=== PATIENT | female | born 1975 | race Caucasian/White ===

== ENCOUNTER 2021-08-10 01:26 | Day surgery (SDC) | payer BC, SELFPAY ==
[2021-07-25 13:42] VITALS: BMI 23.5
--- NOTE | 2021-08-09 15:33 | PM.HPGS ---
History of Present Illness History of Present Illness Consent: Risks, benefits, and alternatives have been discussed and questions answered. Patient agrees to proceed with procedure. Chief complaint: hx of colon polyps Narrative: Suyapa Lyman is a 46 year old female with history of polyps and also family history of colon cancer and of polyps. Review of Systems Review of Systems: All systems reviewed & are unremarkable except as noted in HPI and below PMFSH Social History Social History Years smoked: 10 Smoking status: Former smoker Tobacco type: cigarettes Smoking end date: 09/08/97 Alcohol intake: current Substance use type: does not use Living arrangements: with family Meds Home Medications and Allergies Home Medications Medication Instructions Recorded Confirmed Type norethindrone 1 mg-ethinyl 1 tablet PO DAILY #84 tablet 02/26/21 07/25/21 Rx estradiol 10 mcg (24)-iron 10 mcg(2) tablet Allergies Allergy/AdvReac Type Severity Reaction Status Date / Time No Known Allergies Allergy Verified 08/10/21 10:15 Exam Resp: Auscultation: clear to auscultation bilaterally Cardio: Rate: regular rate Rhythm: regular rhythm GI: GI Palp: Yes Soft to palpation and No Tenderness to palpation present (GI) Assessment and Plan Assessment and plan (1) Personal history of colonic polyps: Code(s): Z86.010 - Personal history of colonic polyps Status: Acute Assessment and Plan: Colonoscopy with possible biopsy or polypectomy or cautery or injection of substances.
[2021-08-10 10:16] VITALS: BP 143/60; PULSE 72; RESP 20; TEMP 36.2; O2SAT 99; BMI 23.3
[2021-08-10] MEDS: LACTATED RINGERS 1,000 ML 150 ML IV CONT (10:20)
--- NOTE | 2021-08-10 10:43 | WPDANESEPPF ---
Anes - Initial Pre Proc Eval Procedure: Operation Date: 08/10/21 11:00 Proposed Procedures p Screening Colonoscopy - Mango Hubbard MD Date/Time: 08/10/21 10:43 Surgeon: Mango Hubbard MD Pre Op Diagnosis: hx of colon polyps Patient Data Age: 46 Gender: F Height: 1.63 m Weight: 61.6 kg Last Vital Signs Temp 36.2 C L 08/10/21 10:16 Pulse 72 08/10/21 10:16 Resp 20 08/10/21 10:16 BP 143/60 H 08/10/21 10:16 Pulse Ox 99 08/10/21 10:16 Allergies Allergy/AdvReac Type Severity Reaction Status Date / Time No Known Allergies Allergy Verified 08/10/21 10:15 Home Medications Medication Instructions Recorded Confirmed Type norethindrone 1 mg-ethinyl 1 tablet PO DAILY #84 tablet 02/26/21 07/25/21 Rx estradiol 10 mcg (24)-iron 10 mcg(2) tablet Patient hx anesthesia problems: none Family hx anesthesia problems: none Results Review: All pre-operative results and documents have been reviewed as part of the pre-operative evaluation. [facility] Social History Social History Years smoked: 10 Smoking status: Former smoker Tobacco type: cigarettes Smoking end date: 09/08/97 Alcohol intake: current Substance use type: does not use Living arrangements: with family Anes - Eval Final PreProcedure Day of Procedure 08/10/21 10:43 Patient weight: normal Heart: regular rate and rhythm Lungs: clear to auscultation Airway: Mallampati scale class II Neurological: alert and oriented Last oral intake: >/= 8 hours ASA classification: I Emergent: no Anesthetic plan: proceed Anesthesia type and monitoring: general GIVS and standard monitoring Results Review: All pre-operative results and documents have been reviewed as part of the pre-operative evaluation. Informed Consent: The patient's anesthetic plan and its attendant risks and benefits were discussed with the patient/family/POA. Questions were solicited and answers provided to the satisfaction of the patient/family/POA.
[2021-08-10 11:19] VITALS: BP 83/41; PULSE 37; RESP 20; O2SAT 99
[2021-08-10 11:29] VITALS: BP 97/43; PULSE 35; RESP 20; O2SAT 100
[2021-08-10 11:39] VITALS: BP 90/51; PULSE 35; RESP 17; O2SAT 100
== END 2021-08-10 11:47 | disposition home or self-care (01) ==
PROVIDERS: PCP Family Medicine; Visit Provider Internal Medicine Gastroenterology
PROC: 0DJD8ZZ Inspection of Lower Intestinal Tract, Via Natural or Artificial Opening Endoscopic (ICD-10-PCS; CPT 45378; principal; 2021-08-10 11:00)
DX: Z12.11 Encounter for screening for malignant neoplasm of colon (principal); K64.4 Residual hemorrhoidal skin tags; D12.5 Benign neoplasm of sigmoid colon; Z87.891 Personal history of nicotine dependence
CPT/HCPCS: 45381; 45385; 88305; J2704; J7120

== ENCOUNTER 2021-08-12 22:17 | Inpatient (IN) | payer BC, SELFPAY ==
[2021-08-12 22:19] VITALS: BP 177/67; PULSE 37; RESP 18; TEMP 36.4; O2SAT 100
[2021-08-12 22:38] VITALS: BP 156/81; PULSE 40; RESP 21; O2SAT 100
--- NOTE | 2021-08-12 22:53 | ECG_ITS ---
Measurements Intervals [place] Rate: 36 P: [place]: 0 QRS: 81 QRSD: 65 T: 69 QT: 506 QTc: 394 Interpretive Statements SINUS RHYTHM WITH COMPLETE HEART BLOCK SLOW JUNCTIONAL ESCAPE RHYTHM CANNOT RULE OUT SEPTAL INFARCT, AGE INDETERMINATE ABNORMAL ECG Electronically Signed On 08-13-2021 5:36:06 SPORTS DIRECTOR by Emeterio Paulino D.O.
[2021-08-12 23:08] LABS: Basophils Percent Auto 0.5 % (0.2-1.2); Eosinophils Absolute Auto 0.5 K/mm3 (0-0.3); Eosinophils Percent Auto 5.5 % (0-4.4); Hematocrit 38.5 % (37.0-47.0); Hemoglobin 12.4 g/dL (12.0-15.0); Immature Granulocyte Absolute 0.01 K/mm3 (0.00-0.031); Immature Granulocyte Percent A 0.1 % (0-0.5); Lymphocytes Absolute Auto 3.55 K/mm3 (0.9-3.2); Lymphocytes Percent Auto 43.5 % (18.3-44.2); Mean Corpuscular HGB Conc 32.2 g/dl (32-36); Mean Corpuscular Hemoglobin 29.9 pg (26-34); Mean Corpuscular Volume 92.8 fl (80-100); Mean Platelet Volume 10.6 fl (7.4-10.4); Monocytes Absolute Auto 0.8 K/mm3 (0.1-0.6); Monocytes Percent Auto 9.4 % (2.6-8.5); Neutrophils Absolute Auto 3.4 K/mm3 (1.3-6.7); Platelet Count Result 212 k/mm3 (150-375); Red Blood Count 4.15 M/mm3 (4.2-5.4); Red Cell Distribution Width 13.5 % (11.5-14.5); White Blood Count 8.2 K/mm3 (4.5-10.0)
--- NOTE | 2021-08-12 23:12 | ED.GENADULT ---
HPI - General Adult General Chief complaint: GI Bleed Stated complaint: bright red rectal bleed s/p colonoscopy Time Seen by Provider: 08/12/21 23:08 Source: patient History of Present Illness HPI narrative: Patient is a 46 y/o female complaining of rectal bleeding starting tonight. She states that she had at least 6 episode of bleeding. The bleeding is mostly bright red blood. She has no abdominal pain or rectal pain. She states that she had colonoscopy and polypectomy 2 days ago. She also feels weak. Related Data Home Medications Medication Instructions Recorded Confirmed norethindrone-e.estradiol-iron [Lo 1 tablet PO DAILY 08/13/21 08/13/21 Loestrin Fe] Allergies Allergy/AdvReac Type Severity Reaction Status Date / Time No Known Allergies Allergy Verified 08/13/21 08:58 Review of Systems Constitutional: Constitutional: Denies chills, Denies fever(s), Denies headache(s) and Denies weakness Eyes: Eyes: Denies blurry vision ENT: Denies headache(s) and Denies neck pain Cardiovascular: Cardiovascular: Denies chest pain and Denies dyspnea Respiratory: Respiratory: Denies cough and Denies dyspnea Gastrointestinal: Gastrointestinal: Denies abdominal pain, Reports hematochezia, Denies diarrhea, Denies nausea and Denies vomiting Genitourinary: Genitourinary: Denies hematuria and Denies dysuria Musculoskeletal: Musculoskeletal: Denies back pain and Denies neck pain Neurologic: Denies headache(s) and Denies weakness PMFSH Past Medical History Medical History (Updated 08/13/21 @ 11:21 by Anitha Ellison MD) Colon polyps HPV (human papilloma virus) infection Surgical History Surgical History (Updated 08/13/21 @ 06:00 by Sabrina Carlos DO) History of breast augmentation (~2018) History of colonoscopy with polypectomy 09/2015, 08/10/2021 Hx of basal cell carcinoma (06/2017) Resected from right scapula Family History Family History Grandparent Carcinoma of colon Mother Colon polyp Social History Social History (Updated 08/13/21 @ 06:02 by Sabrina Carlos DO) Social History: She has been since 2006. She and her to teenage boys. She drinks a glass a wine nightly and will drink more when going out in social situations. Smoking packs per day: 0.5 Smoking cigarettes per day: 10.0 Years smoked: 10 Smoking pack-years: 5.00 Smoking status: Current some day smoker Tobacco type: cigarettes Smoking end date: 08/13/04 Alcohol intake: current Drinks per week: 12 Substance use: never Substance use type: does not use Spiritual care concerns: No Exam Const: General: no acute distress and well developed Orientation/consciousness: oriented to person, oriented to place, oriented to time and patient oriented x3 HENMT: Head: normocephalic Ears: external ears normal General nose exam: Normal external nose present Eyes: General: appearance normal, both eyes and all related structures Conjunctivae: conjunctivae normal Neck: Neck: normal visual inspection and full ROM Chest: Chest palpation & inspection: normal inspection of the chest and no tenderness Resp: Effort & Inspection: normal respiratory effort Auscultation: clear to auscultation bilaterally Cardio: Rate: bradycardic Rhythm: regular rhythm GI: GI Palp: No abdominal tenderness and Yes Soft to palpation Skin: General skin exam: normal color and turgor normal Neuro: General: oriented to person, oriented to place, oriented to time and patient oriented x3 Cognition (Neuro): normal cognition Extrem: General: normal to inspection, full ROM and no pedal edema Psych: Appearance: grossly normal Mental Status: mental status grossly normal Affect: normal affect Course Consultations Consultation #1: Discussed with Dr. Haro, who agrees to consult. Date: 08/12/21 Time: 23:22 Consultation #2: Discussed with Dr. Oneal, who agrees to
[2021-08-12 23:18] LABS: INR 0.9; Prothrombin Time 12.3 Seconds (11.1-14.7)
[2021-08-12 23:19] LABS: Alanine Aminotransferase 64 U/L (4-35); Albumin Level 4.4 g/dL (3.5-5.1); Alkaline Phosphatase 72 U/L (38-126); Anion Gap 8 mmol/L (8-16); Aspartate Amino Transferase 59 U/L (14-36); Bilirubin,Total 0.4 mg/dL (0.2-1.3); Blood Urea Nitrogen 22 mg/dL (7-17); Calcium 9.4 mg/dL (8.4-10.2); Carbon Dioxide 23 mmol/L (22-30); Chloride 103 mmol/L (98-107); Estimated Glomerular Filt Rate 59; Glucose 94 mg/dL (65-110); Partial Thromboplastin Time 25.6 SECONDS (22.3-36.8); Potassium 3.8 mmol/L (3.4-5.0); Sodium 134 mmol/L (137-145)
--- NOTE | 2021-08-12 23:39 | ECG_ITS ---
Measurements Intervals [place] Rate: 38 P: [place]: 0 QRS: 78 QRSD: 80 T: 71 QT: 516 QTc: 413 Interpretive Statements SINUS RHYTHM WITH COMPLETE HEART BLOCK SLOW JUNCTIONAL ESCAPE RHYTHM CANNOT RULE OUT SEPTAL INFARCT, AGE INDETERMINATE BASELINE ARTIFACT- II, III, AVF, V2, V4-V6 ABNORMAL ECG Electronically Signed On 08-13-2021 5:38:02 PAINTING INSTRUCTOR by Emeterio Paulino D.O.
[2021-08-12 23:57] VITALS: BP 131/65; PULSE 40; RESP 13; O2SAT 100
[2021-08-13] VITALS (46 sets, daily range): BP systolic 104–142; BP diastolic 41–78; PULSE 36–91; RESP 9–22; TEMP 36–36.5; O2SAT 98–100; BMI 23.1; BMI 24.3
--- NOTE | 2021-08-13 | ECHOL_ITS ---
Patient Info Name: Suyapa Lyman Age: 46 years : 1975 Gender: Female Ht: 65 in Wt: 134 lbs BSA: 1.67 m2 HR: 78 bpm BP: 108 / 66 mmHg Heart Rhythm: Sinus Rhythm Technical Quality: Good Exam Date: 08/13/2021 12:43 PM Exam Location: [facility] Pulmonary Exam Room: [place] [address] Patient Status: Inpatient Admit Date: 08/13/2021 Staff Ordering Physician: Rashad Forbes MD Sales Contracts Analyst: Arleth Valencia RDCS Attending Provider: Sabrina Carlos DO Referring Physician: Leidy OVALLE; Exam Type: CA echo limited Study Info Indications - CHB Limited two-dimensional transthoracic echocardiogram is performed. Summary 1. Patient in sinus rhythm with 2-1 conduction during the exam. 2. Otherwise unremarkable echocardiogram. Left Ventricle Left ventricular chamber dimension is normal. Left ventricular systolic function is normal, estimated at 65-70%. The left ventricular diastolic function is normal. Right Ventricle Right ventricular chamber dimension is normal. Left Atria Left atrial chamber dimension is normal. Right Atria Right atrial chamber dimension is normal. Aortic Valve The aortic valve is normal. Pulmonic Valve The pulmonic valve is normal. Mitral Valve The mitral valve has normal leaflets. Tricuspid Valve The tricuspid valve leaflets are normal. Pericardium/Pleural The pericardium appears normal. Aorta The aortic root size at the sinus of Valsalva is normal. Left Ventricular Outflow Tract Name Value Normal LVOT 2D LVOT Diameter 2.0 cm Aortic Valve Name Value Normal AV Regurgitation 2D LVOT Area 3.1 cm2 Ventricles Name Value Normal LV Dimensions 2D/MM IVS Diastolic Thickness (2D) 0.6 cm 0.6-1.0 LVID Diastole (2D) 4.9 cm 3.8-5.2 LVIW Diastolic Thickness (2D) 0.9 cm 0.6-0.9 LVID Systole (2D) 2.7 cm 2.2-3.5 LVOT Diameter 2.0 cm LV Mass (2D Cubed) 123.89 g 67.00-162.00 LV Mass Index (2D Cubed) 74 g/m2 43-95 Relative Wall Thickness (2D) 0.39 LV Fractional Shortening/Ejection Fraction 2D/MM LV Fractional Shortening (2D) 44 % 27-45 LV EF (2D Teicholz) 75 % 54-74 LV Diastolic Volume (4C MOD) 99 ml LV EF (4C MOD) 61 % LV Diastolic Volume (2C MOD) 101 ml LV EF (2C MOD) 72 % LV Diastolic Volume (BP MOD)
[2021-08-13] MEDS: SODIUM CHLORIDE 0.9% IV 1,000 ML 999 ML IV CONT (00:10)
--- NOTE | 2021-08-13 00:25 | PM.IMHP ---
H&P: HPI History of Present Illness Date/Time: 08/13/21 00:25 Chief Complaint: Rectal bleeding Narrative: 46-year-old female with a past medical history of chronic bradycardia and colon polyps who presented to the ER via private vehicle from home with rectal bleeding. The patient and the colonoscopy with polypectomy performed 08/10/[address] Hubbard. The polyp was pedunculated 40 mm in size and was located 27 cm from the anal verge. Polyp appeared to be adenomatous in nature according to notes. The patient is not on any blood thinners. The patient reports that she drank approximately 4 glasses a wine yesterday and took some ibuprofen because she was worried about having a hangover the next day. In around 7:00 p.m. she began having multiple bloody bowel movements. Initially it was just blood in the later bowel movements had a small amount of stool. She has had at least 10 bowel movements since 7:00 p.m.. She denies any nausea or vomiting. She reports some abdominal cramping just before bowel movements but denies any true pain. She reports her lower abdomen did feel a little bit bloated. She has never had prior GI bleeding. On arrival to the ER was noted the patient was bradycardic. She reports that she is healthy in usually works out regularly. She does not know her resting heart rate. She did state that when she had her colonoscopy a couple of days ago that the nurses were commenting on her low heart rate. On review of records the patient's heart rate in GI lab was between 35 and 37. But she has noticed over the last 6 months that she has been more fatigued than usual and has been developing dyspnea when she climbs a flight of stairs. She has not been going to the gym as much due to her symptoms. She has noticed some mild weight gain but attributes this to COVID and eating more. She denies any chest pain or palpitations. The only other EKG available for for my review was from April 2014 and demonstrated normal sinus rhythm with a rate of 62. Review of Systems Review of Systems: 12 systems were reviewed with pertinent positives and negatives per HPI. Except as documented in the HPI, all other systems were reviewed and are negative. [facility] Past Medical History Medical History (Updated 08/13/21 @ 00:35 by Sabrina Carlos DO) Colon polyps HPV (human papilloma virus) infection Surgical History Surgical History (Updated 08/13/21 @ 06:00 by Sabrina Carlos DO) History of breast augmentation (~2019) History of colonoscopy with polypectomy 09/2015, 08/10/2021 Hx of basal cell carcinoma (06/2017) Resected from right scapula Family History Family History Grandparent Carcinoma of colon Mother Colon polyp Social History Social History (Updated 08/13/21 @ 06:02 by Sabrina Carlos DO) Social History: She has been since 2006. She and her to teenage boys. She drinks a glass a wine nightly and will drink more when going out in social situations. Smoking packs per day: 0.5 Smoking cigarettes per day: 10.0 Years smoked: 10 Smoking pack-years: 5.00 Smoking status: Former smoker Tobacco type: cigarettes Smoking end date: 09/08/97 Alcohol intake: current Substance use type: does not use Meds Home Medications and Allergies Home Medications Medication Instructions Recorded Confirmed Type norethindrone 1 mg-ethinyl 1 tablet PO DAILY #84 tablet 02/26/21 07/25/21 Rx estradiol 10 mcg (24)-iron 10 mcg(2) tablet Allergies Allergy/AdvReac Type Severity Reaction Status Date / Time No Known Allergies Allergy Verified 08/12/21 22:39 Vital Signs Vital Signs - 24 hr 08/12/21 22:19 08/12/21 22:38 08/12/21 23:57 Temperature 97.6 F Pulse Rate 37 L 40 L 40 L Respiratory Rate 18 21 H 13 Blood Pressure 177/67 H 156/81 H 131/65 Pulse Oximetry 100 100 100 Exam Narrative: PHYSICAL EXAM: WEIGHT
[2021-08-13] MEDS: SODIUM CHLORIDE 0.9% IV 1,000 ML 125 ML IV CONT ×3 (04:01→18:26)
--- NOTE | 2021-08-13 06:31 | PC.NURSE ---
calls back in regards to patient's H&H result. She stated she will come down to re-evaluate the patient.
--- NOTE | 2021-08-13 07:27 | WPDGICN ---
Assessment and Plan Assessment and plan (1) GI (gastrointestinal hemorrhage): Qualifiers: GI bleed type/associated pathology: unspecified gastrointestinal hemorrhage type Qualified Code(s): K92.2 - Gastrointestinal hemorrhage, unspecified Code(s): K92.2 - Gastrointestinal hemorrhage, unspecified Status: Acute Assessment and Plan: Colonoscopy with possible biopsy or polypectomy or cautery or injection of substances. her hemoglobin will be followed every 6 hours. If hemoglobin drops below 8 she will need transfuse (2) Mobitz type 2 second degree heart block: Code(s): I44.1 - Atrioventricular block, second degree Status: Acute Assessment and Plan: cardiology is following and will determine need for pacemaker and other studies GI Consult Note Consult date/time: 08/13/21 07:27 HPI: Suyapa Lyman is a 46 year old female Who had a colonoscopy with removal of a large polyp on Friday. She states that she was active, playing tag football with her children yesterday but otherwise felt well until the middle the night when she began passing blood in her stools. She has had 6 bowel movements of bright red blood so far. She had been feeling weak and fatigued but this has been present for a while recently. In fact she was noted to have a low heart rate on Friday. An EKG that was done in the emergency room shows apparently that she has heart block. She has been seen by Cardiology and they have diagnosed her with Mobitz type 2 heart block. Her repeat hemoglobin was 8.3. She denies any abdominal pain Review of Systems Review of Systems: All systems reviewed & are unremarkable except as noted in HPI and below PMFSH Past Medical History Medical History Colon polyps HPV (human papilloma virus) infection Surgical History Surgical History History of breast augmentation (~2018) History of colonoscopy with polypectomy 09/2015, 08/10/2021 Hx of basal cell carcinoma (06/2017) Resected from right scapula Family History Family History Grandparent Carcinoma of colon Mother Colon polyp Social History Social History Social History: She has been since 2006. She and her to teenage boys. She drinks a glass a wine nightly and will drink more when going out in social situations. Smoking packs per day: 0.5 Smoking cigarettes per day: 10.0 Years smoked: 10 Smoking pack-years: 5.00 Smoking status: Current some day smoker Tobacco type: cigarettes Smoking end date: 08/13/04 Alcohol intake: current Drinks per week: 12 Substance use: never Substance use type: does not use Spiritual care concerns: No Meds Home Medications and Allergies Home Medications Medication Instructions Recorded Confirmed Type norethindrone-e.estradiol-iron [Lo 1 tablet PO DAILY 08/13/21 08/13/21 History Loestrin Fe] Allergies Allergy/AdvReac Type Severity Reaction Status Date / Time No Known Allergies Allergy Verified 08/13/21 08:58 Vital Signs Vital Signs - 24 hr 08/12/21 22:19 08/12/21 22:38 08/12/21 23:57 Temperature 36.4 C Pulse Rate 37 L 40 L 40 L Respiratory Rate 18 21 H 13 Blood Pressure 177/67 H 156/81 H 131/65 Pulse Oximetry 100 100 100 08/13/21 00:42 08/13/21 03:39 08/13/21 07:03 Temperature Pulse Rate 40 L 39 L 38 L Respiratory Rate 15 14 15 Blood Pressure 129/69 127/70 104/68 Pulse Oximetry 99 100 100 Exam Const: General: alert Orientation/consciousness: patient oriented x3 Resp: Auscultation: clear to auscultation bilaterally Cardio: Rate: bradycardic Rhythm: regular rhythm GI: GI Palp: Yes Soft to palpation and No Tenderness to palpation present (GI) Neuro: General: patient oriented x3
--- NOTE | 2021-08-13 07:30 | PC.NURSE ---
Ambulated pt to the restroom, pt states there was no blood at this time
[2021-08-13 07:57] LABS: Free T4 Free Thyroxine Reflex 0.88 ng/dL (0.78-2.19)
--- NOTE | 2021-08-13 08:30 | PC.NURSE ---
Spoke with Dr. Mccormack regarding hemoglobin levels and plan, pt hemoglobin has been redrawn to make sure level is correct, awaiting results,then will call blood bank if necessary
[2021-08-13 08:44] LABS: Basophils Percent Auto 0.4 % (0.2-1.2); Eosinophils Absolute Auto 0.2 K/mm3 (0-0.3); Eosinophils Percent Auto 5.2 % (0-4.4); Hematocrit 25.5 % (37.0-47.0); Hemoglobin 8.3 g/dL (12.0-15.0); Immature Granulocyte Absolute 0.02 K/mm3 (0.00-0.031); Immature Granulocyte Percent A 0.4 % (0-0.5); Lymphocytes Absolute Auto 2.02 K/mm3 (0.9-3.2); Lymphocytes Percent Auto 44.1 % (18.3-44.2); Mean Corpuscular HGB Conc 32.5 g/dl (32-36); Mean Corpuscular Hemoglobin 30.4 pg (26-34); Mean Corpuscular Volume 93.4 fl (80-100); Mean Platelet Volume 10.8 fl (7.4-10.4); Monocytes Absolute Auto 0.4 K/mm3 (0.1-0.6); Monocytes Percent Auto 7.9 % (2.6-8.5); Neutrophils Absolute Auto 1.9 K/mm3 (1.3-6.7); Platelet Count Result 142 k/mm3 (150-375); Red Blood Count 2.73 M/mm3 (4.2-5.4); Red Cell Distribution Width 13.6 % (11.5-14.5); White Blood Count 4.6 K/mm3 (4.5-10.0)
--- NOTE | 2021-08-13 08:44 | PM.CNCAR ---
Assessment and Plan Additional Plan 46-year-old lady with acquired complete heart block. By her history it sounds like this is been the case for something like 6 months or so. Her pulse is in the high 30s and I feel fairly confident she was in this rhythm when she was here for colonoscopy last week because the vital signs reflected the same type of heart rate. She presents to the hospital with nothing related to this she is having lower GI bleeding presumably from the site of her polypectomy last week. Gastroenterology has seen her and I believe is planning on bringing her back to the GI lab to further assess and treat this. The patient tells me that her hemoglobin has come down to about 8.5 on repeat sample. Looking at the chart at the moment I dictate this it looks like that is actually pending but the patient is telling me that her hemoglobin was down and some red cell transfusion is being ordered for her at this time. At this time I would simply order an echocardiogram to look at the structural basis of this. She is taking no medications that would affect her AV node physiology. This is a class 1 indication for a permanent pacemaker implantation although given the principal reason she is here that and the lack of any syncopal event there is no urgency to proceeding with this. I am confident she was in this rhythm when she was here last week for her colonoscopy given review of the anesthesia record of the vital signs. I will follow her with you while she is in the hospital but I would anticipate arranging for a pacemaker implantation in the future when the current issue has been resolved. Rashad Forbes MD [facility] History of Present Illness History of Present Illness Consult date/time: Date of service: 08/13/21 08:44 Reason For Visit: GI Bleed, Heart Block Narrative: This is a 46-year-old woman who I am seeing in the emergency room this morning because of bradycardia/complete heart block that was noticed on an ECG when she presented here yesterday evening. The patient came here not because of this peak because of rectal bleeding. According to the chart she had a colonoscopy with sigmoid polypectomy done on 08/10/2021. The procedure apparently was uneventful and she went home. She was doing well on Friday but on Friday she started to notice some rectal bleeding. She was having a very active day with her family but was obviously concerned about this. These episodes occurred during the course of the day and finally yesterday afternoon she came to the hospital. She was noted to be bradycardic and an ECG demonstrates sinus rhythm with third-degree AV block and a narrow QRS escape rhythm with a heart rate in the high 30s. Interestingly going through her chart she did have a heart rate of about 37 when she was having her colonoscopy done last week although I do not believe an ECG was done and I do not see any rhythm strip recordings on the chart to look at. The last time she was in her PCP office she had a pulse in the mid 70s. The only old ECG in the chart goes back to 2013 at which time she had normal AV conduction. She denies any history of heart problems prior to this she has no history of syncope chest pain orthopnea PND edema or lightheadedness. She has noticed for about 6 months with activities and she does try to exercise for fitness she has to stop to recover from generalized fatigue and exertional shortness of breath. She did not bring this to her physician's attention as she we did not find to be of any major concern. She is otherwise a healthy lady without any hypertension or diabetes or dyslipidemia. She simply takes estrogen replacement tablets. The patient is a [employer] Review of Systems Constitutional: Constitutional: Reports lethargy Eyes: Eyes: Reports no additional eye complaints ENT: Reports system reviewed and no additional complaints, except as documented Cardiovascular: Cardiovascular: Reports as per HPI Respirat
[2021-08-13 08:57] LABS: Alanine Aminotransferase 46 U/L (4-35); Albumin Level 2.9 g/dL (3.5-5.1); Alkaline Phosphatase 41 U/L (38-126); Anion Gap 3 mmol/L (8-16); Aspartate Amino Transferase 42 U/L (14-36); Bilirubin,Total 0.6 mg/dL (0.2-1.3); Blood Urea Nitrogen 17 mg/dL (7-17); Calcium 7.7 mg/dL (8.4-10.2); Carbon Dioxide 23 mmol/L (22-30); Chloride 105 mmol/L (98-107); Estimated CRCL calculation 67 ml/min; Estimated Glomerular Filt Rate > 60; Glucose 107 mg/dL (65-110); Potassium 3.9 mmol/L (3.4-5.0); Sodium 131 mmol/L (137-145)
[2021-08-13 09:01] LABS: Total Triiodothyronine (T3) 1.02 NG/ML (0.97-1.69)
--- NOTE | 2021-08-13 09:30 | PM.IMPN ---
Progress Note: A&P Assessment and Plan (1) Lower GI bleed: Code(s): K92.2 - Gastrointestinal hemorrhage, unspecified Status: Acute Assessment and Plan: Colonoscopy with polyp removal last week with Dr. Hubbard Reports multiple episodes of bleeding with BMs Dr. Hbubard consulted thank you Colonoscopy scheduled for today H/H is trending down Current 8.3/5.5 Hold off transfusion for now Transfuse if she gets below 7 She might be ok with out transfusion (2) Acute blood loss anemia: Code(s): D62 - Acute posthemorrhagic anemia Status: Acute Assessment and Plan: active bleeding noted related to GI bleed colonoscopy scheduled for today trend labs current H&H 8.3/25.5 transfuse if lower than 7 Get anemia labs (3) Third degree heart block: Code(s): I44.2 - Atrioventricular block, complete Status: Acute Assessment and Plan: Abnormal rhythm noted on the monitor EKG shows SR with complete heart block in the 30s Recently here for procedure, HR noted to be in the 30s Cards consulted Will need a pacemaker at some point Tele monitor Keep activity minimal Echo ordered and pending (4) Anxiety: Code(s): F41.9 - Anxiety disorder, unspecified Status: Acute Assessment and Plan: Very anxious Probably from heart problem and bleeding Will continue to trend Add something if indicated Time Spent With Patient Time with patient: Greater than 35 minutes Subjective Date/time seen: 08/13/2130 Interval history: Date/Time: 08/13/21 00:25 Narrative: 46-year-old female with a past medical history of chronic bradycardia and colon polyps who presented to the ER via private vehicle from home with rectal bleeding. The patient and the colonoscopy with polypectomy performed 08/10/[address] Hubbard. The polyp was pedunculated 40 mm in size and was located 27 cm from the anal verge. Polyp appeared to be adenomatous in nature according to notes. The patient is not on any blood thinners. The patient reports that she drank approximately 4 glasses a wine yesterday and took some ibuprofen because she was worried about having a hangover the next day. In around 7:00 p.m. she began having multiple bloody bowel movements. Initially it was just blood in the later bowel movements had a small amount of stool. She has had at least 10 bowel movements since 7:00 p.m.. She denies any nausea or vomiting. She reports some abdominal cramping just before bowel movements but denies any true pain. She reports her lower abdomen did feel a little bit bloated. She has never had prior GI bleeding. On arrival to the ER was noted the patient was bradycardic. She reports that she is healthy in usually works out regularly. She does not know her resting heart rate. She did state that when she had her colonoscopy a couple of days ago that the nurses were commenting on her low heart rate. On review of records the patient's heart rate in GI lab was between 35 and 37. But she has noticed over the last 6 months that she has been more fatigued than usual and has been developing dyspnea when she climbs a flight of stairs. She has not been going to the gym as much due to her symptoms. She has noticed some mild weight gain but attributes this to COVID and eating more. She denies any chest pain or palpitations. The only other EKG available for for my review was from April 2014 and demonstrated normal sinus rhythm with a rate of 62. Date/Time 08/13/21 0930 Patient stated that she is just tired however she has not had any sleep throughout the night. Her last BM was at 6am which she stated that she noticed a lot of blood at that time. She reports having about 6 episodes bright red bloody stool since she has been here. She did state that she is having a BM about once an hour, however, nothing since 0600 am. She denies chest pain, shortness of phylicia
--- NOTE | 2021-08-13 10:03 | PC.NURSE ---
[facility] and he states that he does not want to give blood transfusion at this time current hemoglobin is 8.3
--- NOTE | 2021-08-13 10:44 | SUR.PREOP ---
Dr Blanco states we do not need a urine on patient since she was negative on Friday.
--- NOTE | 2021-08-13 10:48 | PC.NURSE ---
spoke with GI, states they are a head of schedule and to give pt fleet enema for colonoscopy, have her recover then send pt back to ER
--- NOTE | 2021-08-13 11:22 | PC.NURSE ---
Spoke with Lesli with GI, fleet enema complete, she states one fleet enema is fine, contact them if she has another bm. will come get pt around 12-1300
[2021-08-13 11:51] LABS: Hematocrit 26.3 % (37.0-47.0); Hemoglobin 8.5 g/dL (12.0-15.0)
--- NOTE | 2021-08-13 12:31 | PC.NURSE ---
2nd fleet enema complete Lesli with GI aware
--- NOTE | 2021-08-13 13:00 | PC.NURSE ---
pt went to endoscopy
[2021-08-13] MEDS: LACTATED RINGERS 1,000 ML 150 ML IV CONT (13:09)
--- NOTE | 2021-08-13 13:32 | WPDANESEPPF ---
Anes - Initial Pre Proc Eval Procedure: Operation Date: 08/13/21 14:30 Proposed Procedures p Colonoscopy - Mango Hubbard MD Date/Time: 08/13/21 13:32 Surgeon: Sabrina Carlos DO Pre Op Diagnosis: GI Bleed, Heart Block Patient Data Age: 46 Gender: F Height: 1.64 m Weight: 62 kg Last Vital Signs Temp 97.2 F L 08/13/21 13:12 Pulse 40 L 08/13/21 13:12 Resp 16 08/13/21 13:12 BP 129/60 08/13/21 13:12 Pulse Ox 100 08/13/21 13:12 Allergies Allergy/AdvReac Type Severity Reaction Status Date / Time No Known Allergies Allergy Verified 08/13/21 13:08 Home Medications Medication Instructions Recorded Confirmed Type norethindrone-e.estradiol-iron [Lo 1 tablet PO DAILY 08/13/21 08/13/21 History Loestrin Fe] Laboratory Tests 08/12/21 08/12/21 08/12/21 23:02 23:02 23:02 WBC 8.2 K/mm3 K/mm3 (4.5-10.0) RBC 4.15 M/mm3 L M/mm3 (4.2-5.4) Hgb 12.4 g/dL g/dL (12.0-15.0) Hct 38.5 % % (37.0-47.0) MCV 92.8 fl fl (80-100) MCH 29.9 pg pg (26-34) MCHC 32.2 g/dl g/dl (32-36) RDW 13.5 % % (11.5-14.5) Plt Count 212 k/mm3 k/mm3 (150-375) MPV 10.6 fl H fl (7.4-10.4) Immature Gran % (Auto) 0.1 % % (0-0.5) Neut % (Auto) 41.0 % L % (45.5-73.1) Lymph % (Auto) 43.5 % % (18.3-44.2) Hall % (Auto) 9.4 % H % (2.6-8.5) Eos % (Auto) 5.5 % H % (0-4.4) Baso % (Auto) 0.5 % % (0.2-1.2) Lymph # (Auto) 3.55 K/mm3 H K/mm3 (0.9-3.2) Hall # (Auto) 0.8 K/mm3 H K/mm3 (0.1-0.6) Eos # (Auto) 0.5 K/mm3 H K/mm3 (0-0.3) Baso # (Auto) 0.0 K/mm3 K/mm3 (0.0-0.1) Abs Immat Gran (auto) 0.01 K/mm3 K/mm3 (0.00-0.031) Absolute Neuts (auto) 3.4 K/mm3 K/mm3 (1.3-6.7) Absolute Nucleated RBC 0.0 K/mm3 K/mm3 (0.0-0.012) Nucleated RBC % 0.0 % % (0.0-0.2) PT 12.3 Seconds Seconds (11.1-14.7) INR 0.9 APTT 25.6 SECONDS SECONDS (22.3-36.8) Sodium 134 mmol/L L mmol/L (137-145) Potassium 3.8 mmol/L mmol/L (3.4-5.0) Chloride 103 mmol/L mmol/L (98-107) Carbon Dioxide 23 mmol/L mmol/L (22-30) Anion Gap 8 mmol/L mmol/L (8-16) BUN 22 mg/dL H mg/dL (7-17) Creatinine 1.00 mg/dL mg/dL (0.7-1.0) Estim Creat Clear Calc Not Reportable Estimated GFR 59 (59 - ) Glucose 94 mg/dL mg/dL (65-110) Calcium 9.4 mg/dL mg/dL (8.4-10.2) Total Bilirubin 0.4 mg/dL mg/dL (0.2-1.3) AST 59 U/L H U/L (14-36) ALT 64 U/L H U/L (4-35) Alkaline Phosphatase 72 U/L U/L (38-126) Total Protein 7.0 g/dL g/dL (6.3-8.2) Albumin 4.4 g/dL g/dL (3.5-5.1) TSH TSH (Reflex) Free T4 Total T3 Blood Type Antibody Screen Crossmatch 12/01/2608/12/21 08/13/21 23:02 23:03 06:04 WBC RBC Hgb Hct MCV MCH MCHC RDW Plt Count MPV Immature Gran % (Auto) Neut % (Auto) Lymph % (Auto) Hall % (Auto) Eos % (Auto) Baso % (Auto) Lymph # (Auto) Hall # (Auto) Eos # (Auto) Baso # (Auto) Abs Immat Gran (auto) Absolute Neuts (auto) Absolute Nucleated RBC Nucleated RBC % PT INR APTT Sodium Potassium Chloride Carbon Dioxide Anion Gap BUN Creatinine Estim Creat Clear Calc Estimated
[2021-08-13] MEDS: EPINEPHrine INJ 1 MG/10 ML SYRINGE 0.4 MG XX (14:05)
--- NOTE | 2021-08-13 14:19 | SUR.OPER ---
Epinephrin 0.4 mg injected into sigmoid polypectomy site per Dr. Hubbard.
--- NOTE | 2021-08-13 15:11 | PC.NURSE ---
Pt returned from Endoscopy
[2021-08-13 16:23] LABS: Hematocrit 26.7 % (37.0-47.0); Hemoglobin 8.6 g/dL (12.0-15.0)
--- NOTE | 2021-08-13 18:18 | ADMGEN ---
This patient, Suyapa Lyman, was admitted to Medical Room 348-01. Patient/family oriented to hospital policies and general routines including ID bracelet, bed and alarms, visiting hours, pain management, procedures, bathroom and other care routines, personal items, smoking policy, room service/diet, and visiting hours. Information on how to activate the Rapid Response Team has been discussed. Patient/Family are encouraged to report perceived risks to care and to ask questions if they do not understand what they are told or what they should do.
[2021-08-13 19:36] LABS: Hematocrit 24.2 % (37.0-47.0)
[2021-08-14] VITALS (12 sets, daily range): BP systolic 102–135; BP diastolic 43–53; PULSE 40–46; RESP 16–21; TEMP 36.1–37.1; O2SAT 99–100
[2021-08-14 00:56] LABS: Hematocrit 21.4 % (37.0-47.0)
[2021-08-14 00:58] LABS: Hemoglobin 6.9 g/dL (12.0-15.0)
[2021-08-14] MEDS: SODIUM CHLORIDE 0.9% IV 250 ML 30 ML IV CONT (01:45)
--- NOTE | 2021-08-14 07:16 | WPDGIPROGNO ---
Progress Note: A&P Assessment and Plan (1) GI (gastrointestinal hemorrhage): Qualifiers: GI bleed type/associated pathology: unspecified gastrointestinal hemorrhage type Qualified Code(s): K92.2 - Gastrointestinal hemorrhage, unspecified Code(s): K92.2 - Gastrointestinal hemorrhage, unspecified Status: Acute Assessment and Plan: 08/13 Colonoscopy with possible biopsy or polypectomy or cautery or injection of substances. her hemoglobin will be followed every 6 hours. If hemoglobin drops below 8 she will need transfuse 08/14 HER HEMOGLOBIN DID DROP TO 6.9. SHE HAS RECEIVED 1 UNIT OF BLOOD AND A REPEAT H&H SHOULD BE DRAWN WITHIN THE NEXT FEW MINUTES. I plan to advance her diet beginning with full liquids. If there is no further bleeding her counts are stable, we may be able to send her home this evening. If not at least by tomorrow morning I am hopeful (2) Mobitz type 2 second degree heart block: Code(s): I44.1 - Atrioventricular block, second degree Status: Acute Assessment and Plan: cardiology is following and will determine need for pacemaker and other studies. Thyroid studies have been drawn and are pending. There was some thought about placing a pacemaker today. The patient states that she thinks this is brushing it and she would not mind coming back as an outpatient in a week or 2 for that if Cardiology feels it is appropriate Subjective Date/time seen: 08/14/21 07:16 the patient is comfortable. She has had no further bleeding since her colonoscopy. Her blood counts did drop at midnight and she has received 1 unit of blood. She denies abdominal pain. Denies shortness of breath or other symptoms. The cardiac monitored does show heart block, type 2 Review of Systems Review of Systems: All systems reviewed & are unremarkable except as noted in HPI and below Exam Const: General: alert Orientation/consciousness: patient oriented x3 Resp: Auscultation: clear to auscultation bilaterally Cardio: Rate: bradycardic Rhythm: regular rhythm Neuro: General: patient oriented x3 Objective Data Vital Signs Vital Signs: Vital Signs - 24 hr 08/13/21 07:30 08/13/21 07:31 08/13/21 07:33 Temperature Pulse Rate 39 L 38 L 43 L Respiratory Rate 15 13 18 Blood Pressure 130/54 L 125/51 L Pulse Oximetry 100 08/13/21 07:37 08/13/21 07:45 08/13/21 08:00 Temperature Pulse Rate 40 L 40 L 40 L Respiratory Rate 21 H 20 12 Blood Pressure 125/51 L Pulse Oximetry 08/13/21 08:15 08/13/21 08:16 08/13/21 08:30 Temperature Pulse Rate 40 L 41 L 40 L Respiratory Rate 13 14 13 Blood Pressure 142/78 H Pulse Oximetry 98 08/13/21 08:45 08/13/21 09:00 08/13/21 09:02 Temperature Pulse Rate 40 L 39 L 39 L Respiratory Rate 12 13 14 Blood Pressure 107/64 Pulse Oximetry 98 08/13/21 09:15 08/13/21 09:16 08/13/21 09:30 Temperature Pulse Rate 36 L 40 L 48 L Respiratory Rate 17 15 17 Blood Pressure 117/58 L Pulse Oximetry 98 08/13/21 09:45 08/13/21 10:00 08/13/21 10:01 Temperature Pulse Rate 40 L 42 L 43 L Respiratory Rate 18 12 13 Blood Pressure 111/62 Pulse Oximetry 99 08/13/21 10:07 08/13/21 10:15 08/13/21 10:22 Temperature Pulse Rate 40 L 43 L 40 L Respiratory Rate 19 18 19 Blood Pressure 132/44 L 128/66 Pulse Oximetry 99 08/13/21 10:30 08/13/21 10:45 08/13/21 10:46 Temperature Pulse Rate 39 L 40 L 40 L Respiratory Rate 17 20 18 Blood Pressure 118/62 Pulse Oximetry 08/13/21 11:00 08/13/21 11:30 08/13/21 11:31 Temperature Pulse Rate 36 L 42 L 40 L Respiratory Rate 17 13 17 Blood Pressure 120/41 L Pulse Oximetry 08/13/21 11:45 08/13/21 12:00 08/13/21 12:15 Temperature Pulse Rate 44 L 37 L 39 L Respiratory Rate 15 16 19 Blood Pressure Pulse Oximetry 08/13/21 12:16 08/13/21 12:34 08/13/21 12:56 Temperature Pulse Rate 42 L 42 L 49 L Respiratory Rate
[2021-08-14 07:38] LABS: Iron 141 ug/dL (37-170)
[2021-08-14 07:43] LABS: Basophils Percent Auto 0.7 % (0.2-1.2); Eosinophils Absolute Auto 0.3 K/mm3 (0-0.3); Eosinophils Percent Auto 5.4 % (0-4.4); Hematocrit 26.3 % (37.0-47.0); Hemoglobin 8.3 g/dL (12.0-15.0); Immature Granulocyte Absolute 0.01 K/mm3 (0.00-0.031); Immature Granulocyte Percent A 0.2 % (0-0.5); Immature Reticulocyte Fraction 9.8 % (3.0-15.9); Lymphocytes Absolute Auto 2.82 K/mm3 (0.9-3.2); Lymphocytes Percent Auto 49.6 % (18.3-44.2); Mean Corpuscular HGB Conc 31.6 g/dl (32-36); Mean Corpuscular Hemoglobin 29.9 pg (26-34); Mean Corpuscular Volume 94.6 fl (80-100); Mean Platelet Volume 10.9 fl (7.4-10.4); Monocytes Absolute Auto 0.5 K/mm3 (0.1-0.6); Neutrophils Percent Auto 35.1 % (45.5-73.1); Platelet Count Result 140 k/mm3 (150-375); Red Blood Count 2.78 M/mm3 (4.2-5.4); Red Cell Distribution Width 13.5 % (11.5-14.5); Reticulocyte Hemoglobin Conten 32.9 pg (28.2-35.7); Reticulocyte Percent 2.66 % (0.7-4.3); Reticulocytes Absolute 0.07 B/L (32.2-175.7); White Blood Count 5.7 K/mm3 (4.5-10.0)
[2021-08-14 07:47] LABS: Percent Iron Saturation 55 % (20-50)
[2021-08-14 07:59] LABS: Bilirubin,Total 0.5 mg/dL (0.2-1.3); Lactate Dehydrogenase 229 U/L (313-618)
[2021-08-14 08:07] LABS: Transferrin 176 mg/dL (206-381)
[2021-08-14 08:08] LABS: Alanine Aminotransferase 44 U/L (4-35); Albumin Level 2.8 g/dL (3.5-5.1); Alkaline Phosphatase 33 U/L (38-126); Anion Gap 3 mmol/L (8-16); Aspartate Amino Transferase 31 U/L (14-36); Bilirubin,Total 0.5 mg/dL (0.2-1.3); Blood Urea Nitrogen 6 mg/dL (7-17); Calcium 8.3 mg/dL (8.4-10.2); Carbon Dioxide 25 mmol/L (22-30); Chloride 107 mmol/L (98-107); Estimated CRCL calculation 74 ml/min; Estimated Glomerular Filt Rate > 60; Glucose 114 mg/dL (65-110); Magnesium 1.9 mg/dL (1.6-2.3); Potassium 3.9 mmol/L (3.4-5.0); Sodium 135 mmol/L (137-145)
[2021-08-14] MEDS: SODIUM CHLORIDE 0.9% IV 1,000 ML 125 ML IV CONT (08:35)
[2021-08-14 08:48] LABS: Folic Acid 12.1 ng/mL (2.76->20)
--- NOTE | 2021-08-14 10:20 | PM.DS ---
DS: Admitting Diagnosis Discharge Date date of service 08/14/2021 at 10:20 a.m. Admitting Diagnosis GI bleed/ third-degree heart block DS: Discharge Diagnosis Discharge Diagnosis (1) Lower GI bleed: Code(s): K92.2 - Gastrointestinal hemorrhage, unspecified Status: Acute Assessment and Plan: Colonoscopy with polyp removal last week with Dr. Hubbard Reports multiple episodes of bleeding with BMs Dr. Hubbard consulted thank you Colonoscopy scheduled for today H/H is trending down Current 8.3/5.5 Hold off transfusion for now Transfuse if she gets below 7 She might be ok with out transfusion (2) Acute blood loss anemia: Code(s): D62 - Acute posthemorrhagic anemia Status: Acute Assessment and Plan: active bleeding noted related to GI bleed colonoscopy scheduled for today trend labs current H&H 8.8/27.0 transfuse if lower than 7 Anemia labs iron 141, TIBC 255, % saturation 55%, transferrin 176, ferritin 117, folate 12.1 B12 328 TSH 3.430 (3) Third degree heart block: Code(s): I44.2 - Atrioventricular block, complete Status: Acute Assessment and Plan: Abnormal rhythm noted on the monitor EKG shows SR with complete heart block in the 30s Recently here for procedure, HR noted to be in the 30s Cards consulted Will need a pacemaker at some point Tele monitor Keep activity minimal Echo had an EF of 65-70% (4) Anxiety: Code(s): F41.9 - Anxiety disorder, unspecified Status: Acute Assessment and Plan: Very anxious Probably from heart problem and bleeding Will continue to trend Add something if indicated DS: Summary Hospital Course Hospital Course: patient is a 46-year-old female with a past medical history of colon polyps, HPV who presented to the ED a GI bleed, weakness, fatigue. patient was noted on August 10 that she underwent a colonoscopy with Dr. Hubbard who removed a [address] clips. She did start to have bleeding where she was having multiple episodes of blood. H&H was trended throughout the admission and did drop to 6.9 in 21.4 throughout last night and she received 1 unit of packed red blood cells. Will was able to take her to the GI lab to perform a colonoscopy and did control the bleeding at that time. Patient was also noted to be in a third-degree heart block with heart rate ranging in the 30s. Cardiology was consulted and has seen the patient told the patient she probably will need a pacemaker. Dr. Fernando saw the patient today and stated that he probably could put the pacemaker in tomorrow however patient prefers to get a 2nd opinion will be going to [facility] as an outpatient. Patient had an echo performed while she was here and her EF was 65-70%. Patient denies chest pain, shortness of breath, abdominal cramps, bloating, of sweats, fevers, chills. Patient does feel normal she is ready to go. Patient was educated about no exuberant activities. patient should not be working out or running on a treadmill or doing anything that would raise her heart rate at this time. Status at Discharge Functional status at discharge: independent ambulation Overall status at discharge: patient is progressing back to baseline Time Spent with Patient Time attestation: Total time spent providing and/or coordinating discharge services: 48 minutes Time spent: Greater than 30 minutes Exam Const: General: cooperative, healthy appearing, no acute distress, well developed, alert, awake and anxious Nutritional Appearance: average body habitus and well nourished Orientation/consciousness: oriented to person, oriented to place, oriented to time and patient oriented x3 Limitations: no limitations HENMT: Head: normal to inspection Ears: hearing grossly normal bilaterally General nose exam: Normal external nose present Mouth: Yes Normal oral and palatal mucosa present, Yes lip normal and Ye
--- NOTE | 2021-08-14 10:20 | P.DS_ITS ---
DS: Admitting Diagnosis Discharge Date date of service 08/14/2021 at 10:20 a.m. Admitting Diagnosis GI bleed/ third-degree heart block DS: Discharge Diagnosis Discharge Diagnosis (1) Lower GI bleed: Code(s): K92.2 - Gastrointestinal hemorrhage, unspecified Status: Acute Assessment and Plan: * Colonoscopy with polyp removal last week with Dr. Hubbard * Reports multiple episodes of bleeding with BMs * Dr. Hubbard consulted thank you * Colonoscopy scheduled for today * H/H is trending down * Current 8.3/5.5 * Hold off transfusion for now * Transfuse if she gets below 7 * She might be ok with out transfusion (2) Acute blood loss anemia: Code(s): D62 - Acute posthemorrhagic anemia Status: Acute Assessment and Plan: * active bleeding noted * related to GI bleed * colonoscopy scheduled for today * trend labs * current H&H 8.8/27.0 * transfuse if lower than 7 * Anemia labs iron 141, TIBC 255, % saturation 55%, transferrin 176, ferritin 117, folate 12.1 B12 328 TSH 3.430 (3) Third degree heart block: Code(s): I44.2 - Atrioventricular block, complete Status: Acute Assessment and Plan: * Abnormal rhythm noted on the monitor * EKG shows SR with complete heart block in the 30s * Recently here for procedure, HR noted to be in the 30s * Cards consulted * Will need a pacemaker at some point * Tele monitor * Keep activity minimal * Echo had an EF of 65-70% (4) Anxiety: Code(s): F41.9 - Anxiety disorder, unspecified Status: Acute Assessment and Plan: * Very anxious * Probably from heart problem and bleeding * Will continue to trend * Add something if indicated DS: Summary Hospital Course Hospital Course: patient is a 46-year-old female with a past medical history of colon polyps, HPV who presented to the ED a GI bleed, weakness, fatigue. patient was noted on August 10 that she underwent a colonoscopy with Dr. Hubbard who removed a [address] clips. She did start to have bleeding where she was having multiple episodes of blood. H&H was trended throughout the admission and did drop to 6.9 in 21.4 throughout last night and she received 1 unit of packed red blood cells. Will was able to take her to the GI lab to perform a colonoscopy and did control the bleeding at that time. Patient was also noted to be in a third-degree heart block with heart rate ranging in the 30s. Cardiology was consulted and has seen the patient told the patient she probably will need a pacemaker. Dr. Fernando saw the patient today and stated that he probably could put the pacemaker in tomorrow however patient prefers to get a 2nd opinion will be going to [facility] as an outpatient. Patient had an echo performed while she was here and her EF was 65-70%. Patient denies chest pain, shortness of breath, abdominal cramps, bloating, of sweats, fevers, chills. Patient does feel normal she is ready to go. Patient was educated about no exuberant activities. patient should not be working out or running on a treadm ill or doing anything that would raise her heart rate at this time. Status at Discharge Functional status at discharge: independent ambulation Overall status at discharge: patient is progressing back to baseline Time Spent with Patient Time attestation: Total time spent providing and/or coordinating discharge services: 48 minutes Time spent: Greater than 30 minutes Exam Const: General: cooperative, healthy appearing, no acute distres
[2021-08-14 15:07] LABS: Hemoglobin 8.8 g/dL (12.0-15.0); Mean Corpuscular HGB Conc 32.6 g/dl (32-36); Mean Corpuscular Hemoglobin 30.4 pg (26-34); Mean Corpuscular Volume 93.4 fl (80-100); Mean Platelet Volume 10.8 fl (7.4-10.4); Platelet Count Result 147 k/mm3 (150-375); Red Blood Count 2.89 M/mm3 (4.2-5.4); Red Cell Distribution Width 13.6 % (11.5-14.5); White Blood Count 5.9 K/mm3 (4.5-10.0)
--- NOTE | 2021-08-14 15:38 | PM.PNCARD ---
Progress Note: A&P Assessment and Plan (1) Complete heart block: Code(s): I44.2 - Atrioventricular block, complete Status: Acute Assessment and Plan: Asymptomatic at rest she does have episodes of dizziness. Echocardiogram was unremarkable. Thyroid is normal. She does wish to have a ?2nd opinion ?. Will refer her to Dr. Yun at [facility] for that opinion but she does understand that recommendation is that she have a pacemaker implantation. She has also did advise not to drive. Not operate heavy machinery, climb ladders or put herself at risk in case she were to become dizzy and/or pass out. She verbalized understanding and is agreeable. Avoid SA/AV vijay agents. (2) Mobitz type 2 second degree heart block: Code(s): I44.1 - Atrioventricular block, second degree Status: Acute Assessment and Plan: As above (3) Lower GI bleed: Code(s): K92.2 - Gastrointestinal hemorrhage, unspecified Status: Acute Assessment and Plan: Resolved Additional Plan 46-year-old lady with acquired complete heart block. By her history it sounds like this is been the case for something like 6 months or so. Her pulse is in the high 30s and I feel fairly confident she was in this rhythm when she was here for colonoscopy last week because the vital signs reflected the same type of heart rate. This is a class 1 indication for a permanent pacemaker implantation although given the principal reason she is here that and the lack of any syncopal event there is no urgency to proceeding with this. I am confident she was in this rhythm when she was here last week for her colonoscopy given review of the anesthesia record of the vital signs. I will follow her with you while she is in the hospital but I would anticipate arranging for a pacemaker implantation in the future when the current issue has been resolved. Subjective Date/time seen: 08/14/21 15:38 Interval history: Narrative: 46-year-old female with a past medical history of chronic bradycardia and colon polyps who presented to the ER via private vehicle from home with rectal bleeding. The patient and the colonoscopy with polypectomy performed 08/10/[address] Hubbard. The polyp was pedunculated 40 mm in size and was located 27 cm from the anal verge. Polyp appeared to be adenomatous in nature according to notes. The patient is not on any blood thinners. The patient reports that she drank approximately 4 glasses a wine yesterday and took some ibuprofen because she was worried about having a hangover the next day. In around 7:00 p.m. she began having multiple bloody bowel movements. Initially it was just blood in the later bowel movements had a small amount of stool. She has had at least 10 bowel movements since 7:00 p.m.. She denies any nausea or vomiting. She reports some abdominal cramping just before bowel movements but denies any true pain. She reports her lower abdomen did feel a little bit bloated. She has never had prior GI bleeding. On arrival to the ER was noted the patient was bradycardic. She reports that she is healthy in usually works out regularly. She does not know her resting heart rate. She did state that when she had her colonoscopy a couple of days ago that the nurses were commenting on her low heart rate. On review of records the patient's heart rate in GI lab was between 35 and 37. But she has noticed over the last 6 months that she has been more fatigued than usual and has been developing dyspnea when she climbs a flight of stairs. She has not been going to the gym as much due to her symptoms. She has noticed some mild weight gain but attributes this to COVID and eating more. She denies any chest pain or palpitations. The only other EKG available for for my review was from April 2014 and demonstrated normal sinus rhythm with a rate of 62. Date of service 08/14/2021: She feels okay. Heart rate is still slow. No chest pain, shor
== END 2021-08-14 16:51 | disposition home or self-care (01) | DRG 378 ==
LOC: ANHED 08-13 00:30 → ANH3MEDSUR 08-13 08:17 → ANH3MED 08-13 21:57 → ANH3MEDSUR 08-16 10:32
PROVIDERS: Emergency Medicine; Internal Medicine Gastroenterology; Admitting Provider Internal Medicine; Emergency Provider Emergency Medicine; PCP Family Medicine; Visit Provider Nurse Practitioner
PROC: 0DJD8ZZ Inspection of Lower Intestinal Tract, Via Natural or Artificial Opening Endoscopic (ICD-10-PCS; CPT 45378; principal; 2021-08-13 14:30)
DX: K92.2 Gastrointestinal hemorrhage, unspecified (principal); I44.2 Atrioventricular block, complete; D62 Acute posthemorrhagic anemia; K63.3 Ulcer of intestine; I44.1 Atrioventricular block, second degree; F41.9 Anxiety disorder, unspecified; Z79.3 Long term (current) use of hormonal contraceptives; Z86.010 Personal history of colon polyps; Z87.891 Personal history of nicotine dependence
CPT/HCPCS: 36415; 36430; 80053; 82247; 82248; 82607; 82728; 82746; 83540; 83550; 83615; 83735; 84439; 84443; 84466; 84480; 85014; 85018; 85025; 85027; 85046; 85610; 85730; 86850; 86900; 86901; 86920; 93005; 93308; 99285; J0171; J2704; J7030; J7050; J7120; P9016

== ENCOUNTER 2021-09-24 10:08 | Outpatient (CLI) | payer BC, SELFPAY ==
--- NOTE | ~2021-09-24 | MM_ITS ---
EXAMINATION: MM scrn larisa implant BI w thelma HISTORY: Screening mammogram TECHNIQUE: Craniocaudal and mediolateral oblique 3-D tomosynthesis images with implant displacement a nd synthetic 2-D images were generated. Craniocaudal and mediolateral oblique views of the breasts wi thout implant displacement were obtained using full field digital mammography. CAD analysis was submi tted and interpreted. COMPARISON: No prior mammogram is available for comparison at this institution. BREAST PARENCHYMAL COMPOSITION: The breasts are extremely dense, which lowers the sensitivity of mamm ography FINDINGS: There is no evidence of suspicious mass, calcification, or architectural distortion to sugg est malignancy in either breast. There has been no suspicious interval change. IMPRESSION: 1. No mammographic evidence of malignancy. 2. Recommend routine screening mammography in one year. BI-RADS Category 1: Negative Reviewed, dictated and finalized at location B. 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
== END 2021-09-24 10:09 | disposition home or self-care (01) ==
LOC: ANHIMG 10:10
PROVIDERS: PCP Family Medicine; Visit Provider Family Medicine
DX: Z12.31 Encounter for screening mammogram for malignant neoplasm of breast (principal)
CPT/HCPCS: 77063; 77067

== ENCOUNTER 2024-03-29 01:42 | Day surgery (SDC) | payer BC, SELFPAY ==
[2024-03-16 14:11] VITALS: BMI 22.3
[2024-03-29 09:31] VITALS: BP 104/70; PULSE 75; RESP 18; TEMP 36.1; O2SAT 100; BMI 23.7
[2024-03-29] MEDS: LACTATED RINGERS 1,000 ML 150 ML IV CONT (09:41)
--- NOTE | 2024-03-29 10:41 | WPDANESEPPF ---
Anes - Initial Pre Proc Eval Procedure: Operation Date: 03/29/24 15:00 Proposed Procedures p Colonoscopy - Abdi Finn MD Date/Time: 03/29/24 10:41 Surgeon: Abdi Finn MD Pre Op Diagnosis: personal history colon polyps Patient Data Age: 48 Gender: F Height: 1.63 m Weight: 62.7 kg Last Vital Signs Temp 97 F L 03/29/24 09:31 Pulse 75 03/29/24 09:31 Resp 18 03/29/24 09:31 BP 104/70 03/29/24 09:31 Pulse Ox 100 03/29/24 09:31 O2 Del Method Room Air 03/29/24 09:31 Allergies Allergy/AdvReac Type Severity Reaction Status Date / Time No Known Allergies Allergy Verified 03/29/24 09:30 Home Medications Medication Instructions Recorded Confirmed Type norethindrone 1 mg-ethinyl See Rx Instructions .Route 11/27/23 03/29/24 Rx estradiol 10 mcg (24)-iron 10 .COMPLEX #84 tabs mcg(2) tablet (Lo Loestrin Fe) propranolol 20 mg tablet 20 mg PO Q12H PRN palpitations #60 11/27/23 03/16/24 Rx tabs sodium,potassium,mag sulfates 17.5 See Rx Instructions PO .COMPLEX 12/19/23 03/16/24 Rx gram-3.13 gram-1.6 gram oral soln #354 mL (Suprep Bowel Prep Kit) Patient hx anesthesia problems: none Family hx anesthesia problems: none Results Review: All pre-operative results and documents have been reviewed as part of the pre-operative evaluation. [facility] Past Medical History Medical History Colon polyps External hemorrhoids GI (gastrointestinal hemorrhage) post colonoscopy with biopsy Hemorrhoidal skin tags HPV (human papilloma virus) infection Hx of human papillomavirus infection Surgical History Surgical History History of breast augmentation (~2018) History of colonoscopy with polypectomy 09/2015, 08/10/2021 Hx of basal cell carcinoma (06/2017) Resected from right scapula Family History Family History Grandparent Carcinoma of colon Mother Colon polyp Social History Social History (Updated 11/27/23 @ 14:33 by Madhavi Ortiz MA) Social History: She has been since 2006. She and her to teenage boys. She drinks a glass a wine nightly and will drink more when going out in social situations. Smoking packs per day: 0.5 Smoking cigarettes per day: 10.0 Years smoked: 10 Smoking pack-years: 5.00 Smoking status: Never smoker Tobacco type: cigarettes Smoking end date: 08/13/04 Alcohol intake: current Drinks per week: 2 Substance use: never Substance use type: does not use Do You Feel Safe in your Home?: Yes Lack of Transportation: No Lack of Food: Never True Current Housing: I Have Housing Concerned About Future Housing: No Difficulty Paying Gas/Electric Bills: No Difficulty Paying for Meds: No Currently Unemployed: No Education: Master's Degree or Higher Difficulty w/ Childcare or Family Care: No Living arrangements: with family Spiritual care concerns: No Anes - Eval Final PreProcedure Day of Procedure 03/29/24 10:41 Patient weight: normal Heart: regular rate and rhythm Lungs: clear to auscultation Airway: Mallampati scale class II Neurological: alert and oriented Last oral intake: >/= 8 hours ASA classification: III Emergent: no Anesthetic plan: proceed Anesthesia type and monitoring: general GIVS and standard monitoring Results Review: All pre-operative results and documents have been reviewed as part of the pre-operative evaluation. Informed Consent: The patient's anesthetic plan and its attendant risks and benefits were discussed with the patient/family/POA. Questions were solicited and answers provided to the satisfaction of the patient/family/POA.
--- NOTE | 2024-03-29 10:52 | PM.HPGS ---
History of Present Illness History of Present Illness Consent: Risks, benefits, and alternatives have been discussed and questions answered. Patient agrees to proceed with procedure. Chief complaint: personal history colon polyps Narrative: Suyapa Lyman is a 48 year old female with large polyp in sigmoid 2020 Review of Systems Review of Systems: All systems reviewed & are unremarkable except as noted in HPI and below PMFSH Past Medical History Medical History Colon polyps External hemorrhoids GI (gastrointestinal hemorrhage) post colonoscopy with biopsy Hemorrhoidal skin tags HPV (human papilloma virus) infection Hx of human papillomavirus infection Surgical History Surgical History History of breast augmentation (~2018) History of colonoscopy with polypectomy 09/2015, 08/10/2021 Hx of basal cell carcinoma (06/2017) Resected from right scapula Family History Family History Grandparent Carcinoma of colon Mother Colon polyp Social History Social History (Updated 11/27/23 @ 14:33 by Madhavi Ortiz MA) Social History: She has been since 2006. She and her to teenage boys. She drinks a glass a wine nightly and will drink more when going out in social situations. Smoking packs per day: 0.5 Smoking cigarettes per day: 10.0 Years smoked: 10 Smoking pack-years: 5.00 Smoking status: Never smoker Tobacco type: cigarettes Smoking end date: 08/13/04 Alcohol intake: current Drinks per week: 2 Substance use: never Substance use type: does not use Do You Feel Safe in your Home?: Yes Lack of Transportation: No Lack of Food: Never True Current Housing: I Have Housing Concerned About Future Housing: No Difficulty Paying Gas/Electric Bills: No Difficulty Paying for Meds: No Currently Unemployed: No Education: Master's Degree or Higher Difficulty w/ Childcare or Family Care: No Living arrangements: with family Spiritual care concerns: No Meds Home Medications and Allergies Home Medications Medication Instructions Recorded Confirmed Type norethindrone 1 mg-ethinyl See Rx Instructions .Route 11/27/23 03/29/24 Rx estradiol 10 mcg (24)-iron 10 .COMPLEX #84 tabs mcg(2) tablet (Lo Loestrin Fe) propranolol 20 mg tablet 20 mg PO Q12H PRN palpitations #60 11/27/23 03/16/24 Rx tabs sodium,potassium,mag sulfates 17.5 See Rx Instructions PO .COMPLEX 12/19/23 03/16/24 Rx gram-3.13 gram-1.6 gram oral soln #354 mL (Suprep Bowel Prep Kit) Allergies Allergy/AdvReac Type Severity Reaction Status Date / Time No Known Allergies Allergy Verified 03/29/24 09:30 Vital Signs Vital Signs - 24 hr 03/29/24 09:31 Temperature 97 F L Pulse Rate 75 Respiratory Rate 18 Blood Pressure 104/70 Pulse Oximetry 100 Oxygen Delivery Room Air Exam Const: General: comfortable and no acute distress HENMT: Face/Nose/Sinus: Normal nares present Eyes: General: appearance normal, both eyes and all related structures Neck: Neck: no JVD Resp: Auscultation: clear to auscultation bilaterally Cardio: Rate: regular rate Rhythm: regular rhythm GI: Inspection: non-distended GI Palp: Yes Soft to palpation Skin: General skin exam: normal color Neuro: General: gait normal Speech: normal speech Extrem: General: normal to inspection Psych: Mental Status: mental status grossly normal Assessment and Plan Assessment and plan (1) Personal history of colonic polyps: Code(s): Z86.010 - Personal history of colonic polyps Status: Acute Assessment and Plan: colonoscopy (2) FH: colon polyps: Code(s): Z83.71 - Family history of colonic polyps Status: Acute
[2024-03-29 11:21] VITALS: BP 91/56; PULSE 63; RESP 17; O2SAT 100
[2024-03-29 11:31] VITALS: BP 107/66; PULSE 60; RESP 23; O2SAT 100
[2024-03-29 11:41] VITALS: BP 116/69; PULSE 60; RESP 19; O2SAT 100
== END 2024-03-29 11:51 | disposition home or self-care (01) ==
PROVIDERS: PCP Family Medicine; Visit Provider Internal Medicine Gastroenterology
PROC: 0DJD8ZZ Inspection of Lower Intestinal Tract, Via Natural or Artificial Opening Endoscopic (ICD-10-PCS; CPT 45378; principal; 2024-03-29 15:00)
DX: Z12.11 Encounter for screening for malignant neoplasm of colon (principal); K63.5 Polyp of colon; K64.8 Other hemorrhoids; Z98.890 Other specified postprocedural states; Z85.828 Personal history of other malignant neoplasm of skin; Z80.0 Family history of malignant neoplasm of digestive organs
CPT/HCPCS: 45385; 88305; J2704; J7120